=== PATIENT | female | born 1985 | race Caucasian/White ===

== ENCOUNTER 2019-08-27 13:49 | Emergency (ER) | payer SELFPAY ==
--- NOTE | 2019-08-27 14:04 | ER Document Report ---
ED General - General Chief Complaint: Psych Problem Stated Complaint: PSYCH Time Seen by Provider: 08/27/19 14:03 Primary Care Provider: AUBRIE LOPEZ MD [Primary Care Provider] - Follow up as needed Mode of Arrival: Ambulatory Information source: Law Enforcement Notes: 34-year-old female presents emergency department escorted by [employer] for IVC. According the IVC patient was threatening to kill herself. IVC notes that the patient was suicidal. Reports she attempted suicide in the past. The IVC also notes that she has children and in the middle of a divorce. Patient reports she just been crying all day. Denies history of suicide attempt denies suicide ideation at this time. Reports she just did not want to be here anymore. Reports her marriage is fine and so are her kids. Is requesting Tylenol due to headache from crying all day long. TRAVEL OUTSIDE OF THE [place] IN LAST 30 DAYS: No - HPI Onset: This morning Onset/Duration: Sudden Quality of pain: Achy Associated symptoms: None Exacerbated by: Denies Relieved by: Denies Past Medical History - General Information source: Patient, [employer] - ivc Last Menstrual Period: unsure - Social History Smoking Status: Unknown if Ever Smoked Frequency of alcohol use: Occasional Drug Abuse: None Lives with: Family Family History: None Patient has suicidal ideation: Yes Patient has homicidal ideation: No - Past Medical History Cardiac Medical History: Reports: Hx Hypertension Psychiatric Medical History: Reports: Hx Anxiety, Hx Depression Past Surgical History: Reports: Hx Section, Hx Tubal Ligation Review of Systems - Review of Systems Notes: Review HPI for review of systems., All other systems negative Physical Exam - Vital signs Vitals: Temp Pulse Resp BP Pulse Ox 98.0 F 83 18 134/95 H 97 08/27/19 14:17 08/27/19 14:17 08/27/19 14:17 08/27/19 14:17 08/27/19 14:17 - General General appearance: Alert, Anxious In distress: None - HEENT Head: Normocephalic Eyes: Normal Conjunctiva: Normal Extraocular movements intact: Yes Neck: Normal, Supple. No: Lymphadenopathy - Respiratory Respiratory status: No respiratory distress Chest status: Nontender Breath sounds: Normal Chest palpation: Normal - Cardiovascular Rhythm: Regular - Abdominal Inspection: Normal Distension: No distension Bowel sounds: Normal Tenderness: Nontender - Back Back: Normal - Extremities General upper extremity: Normal color, Normal ROM General lower extremity: Normal color, Normal ROM - Neurological Neuro grossly intact: Yes Cognition: Normal Orientation: AAOx4 [place] Coma Scale Eye Opening: Spontaneous [place] Coma Scale Verbal: Oriented [place] Coma Scale Motor: Obeys Commands [place] Coma Scale Total: 15 Speech: Normal - Psychological Associated symptoms: Normal affect, Normal mood - Skin Skin Temperature: Warm Skin Moisture: Dry Skin Color: Normal Course - Re-evaluation Re-evalutation: 08/27/19 18:16 Patient resting quietly ate dinner without problems. No further crying. 08/27/19 20:09 Patient resting quietly. Report given to MODE Webb - Vital Signs Vital signs: Temp Pulse Resp BP Pulse Ox 98.0 F 83 18 134/95 H 97 08/27/19 14:17 08/27/19 14:17 08/27/19 14:17 08/27/19 14:17 08/27/19 14:17 - Laboratory Result Diagrams: 08/27/19 14:15 08/27/19 14:15 Laboratory results interpreted by me: 08/27/19 08/27/19 14:15 16:20 Urine Ketones TRACE H Ur Leukocyte Esterase MODERATE H Salicylates < 1.0 L Acetaminophen < 10 L - EKG Interpretation by Pa EKG shows normal: Sinus rhythm Rate: Normal Rhythm: NSR Additional EKG results interpreted by me: 08/27/19 15:[address] elevation no T wave inversion Discharge - Discharge Clinical Impression: Suicidal ideations Condition: Stable Disposition: PSYCH HOSP/UNIT Referrals: AUBRIE LOPEZ MD [Primary Care Provider] - Follow up as needed
[2019-08-27 14:34] LABS: ABSOLUTE BASOPHILS # (AUTO) 0.1 10^3/uL (0.0-0.2); ABSOLUTE EOSINOPHILS # (AUTO) 0.2 10^3/uL (0.0-0.6); ABSOLUTE LYMPHOCYTES (AUTO) 1.6 10^3/uL (0.5-4.7); ABSOLUTE MONOCYTES (AUTO) 0.4 10^3/uL (0.1-1.4); BASOPHILS % (AUTO) 0.7 % (0-2); EOSINOPHILS % (AUTO) 1.9 % (0-6); HEMATOCRIT 41.1 % (36.0-47.0); HEMOGLOBIN 14.4 g/dL (12.0-15.5); LYMPHOCYTES % (AUTO) 15.5 % (13-45); MEAN CORPUSCULAR HEMOGLOBIN 30.7 pg (27.0-33.4); MEAN CORPUSCULAR HGB CONC 34.9 g/dL (32.0-36.0); MEAN CORPUSCULAR VOLUME 88 fl (80-97); MONOCYTES % (AUTO) 4.1 % (3-13); PLATELET COUNT 214 10^3/uL (150-450); RED BLOOD COUNT 4.68 10^6/uL (3.72-5.28); RED CELL DISTRIBUTION WIDTH 13.2 % (11.5-14.0); SEGMENTED NEUTROPHILS % (AUTO) 77.8 % (42-78); TOTAL CELLS COUNTED % (AUTO) 100 %; WHITE BLOOD COUNT 10.2 10^3/uL (4.0-10.5)
[2019-08-27 14:54] LABS: ALBUMIN 4.6 g/dL (3.5-5.0); ALKALINE PHOSPHATASE 56 U/L (38-126); ANION GAP 10 (5-19); ASPARTATE AMINO TRANSFERASE 18 U/L (14-36); BILIRUBIN,TOTAL 0.7 mg/dL (0.2-1.3); BLOOD UREA NITROGEN 12 mg/dL (7-20); CALCIUM 9.6 mg/dL (8.4-10.2); CARBON DIOXIDE 28 mmol/L (22-30); CHLORIDE 103 mmol/L (98-107); GLUCOSE 97 mg/dL (75-110); POTASSIUM 3.6 mmol/L (3.6-5.0); TOTAL PROTEIN 7.6 g/dL (6.3-8.2)
[2019-08-27 14:57] LABS: ACETAMINOPHEN < 10 ug/mL (10-30); ALCOHOL < 10 mg/dL (NONE DETECTED); SALICYLATE < 1.0 mg/dL (2.0-20.0)
[2019-08-27 16:57] LABS: APPEARANCE,URINE SLIGHTLY-CLOUDY; BILIRUBIN,URINE NEGATIVE (NEGATIVE); COLOR,URINE YELLOW; GLUCOSE, URINE NEGATIVE (NEGATIVE); KETONES,URINE TRACE mg/dL (NEGATIVE); LEUKOCYTE ESTERASE,URINE MODERATE (NEGATIVE); NITRITE,URINE NEGATIVE (NEGATIVE); PROTEIN,URINE NEGATIVE (NEGATIVE); URINE SPECIFIC GRAVITY 1.015; UROBILINOGEN,URINE NEGATIVE mg/dL (<2.0)
[2019-08-27 17:12] LABS: URINE AMPHETAMINES SCREEN NEGATIVE; URINE BARBITURATES SCREEN NEGATIVE; URINE COCAINE SCREEN NEGATIVE; URINE MARIJUANA (THC) SCREEN NEGATIVE; URINE METHADONE SCREEN NEGATIVE; URINE PHENCYCLIDINE SCREEN NEGATIVE
[2019-08-27 17:28] LABS: URINE BENZODIAZEPINES SCREEN UNCONFIRMED POSITIVE
[2019-08-27] MEDS: BUSPIRONE HCL 10 MG TABLET PO SCH (17:54)
--- NOTE | 2019-08-27 19:11 | EKG REPORT ---
SEVERITY:- NORMAL ECG - SINUS RHYTHM : Confirmed by: Cindy Morel MD 27-Aug-2019 19:10:55
[2019-08-27] MEDS ORDERED: OLANZAPINE 5 MG TABLET PO SCH (22:00)
[2019-08-28] MEDS ORDERED: OLANZAPINE 2.5 MG TABLET PO SCH (08:00)
[2019-08-28] MEDS ORDERED: ESCITALOPRAM OXALATE 10 MG TABLET PO SCH (10:00)
[2019-08-28] MEDS: BUSPIRONE HCL 10 MG TABLET PO SCH (10:25)
[2019-08-28] MEDS ORDERED: HYDROCHLOROTHIAZIDE 12.5 MG TABLET PO ONE (14:38)
[2019-08-28] MEDS ORDERED: FLUCONAZOLE 100 MG TABLET PO ONE (14:38)
--- NOTE | 2019-08-28 14:42 | ER Document Report ---
Doctor's Note Notes: 08/28/19 14:39 PHYSICAL EXAMINATION: GENERAL: Well-appearing and in no acute distress. HEAD: Atraumatic, normocephalic. EYES: sclera anicteric, conjunctiva are normal. ENT: nares patent. Moist mucous membranes. NECK: Normal range of motion, supple without lymphadenopathy LUNGS: CTAB and equal. No wheezes rales or rhonchi. HEART: Regular rate and rhythm without murmurs ABDOMEN: Soft, nontender, normal bowel sounds, no guarding. EXTREMITIES: Normal range of motion, no pitting edema. No cyanosis. BACK: No midline tenderness, no step-off or deformity. No CVA tenderness NEUROLOGICAL: Cranial nerves grossly intact. Normal speech. Normal gait. PSYCH: Normal mood, normal affect. SKIN: Warm, Dry, normal turgor, no rashes or lesions noted Patient denies any urinary tract infection symptoms such as frequency dysuria or hematuria. Patient advised of incidental yeast noted on urinalysis. Will give a single dose of Diflucan here. Patient appears medically stable for discharge or transfer at this time. Mental health team does not feel that patient needs IVC criteria at this time and is stable for discharge. Mental health team is requesting that patient have a prescription for Lexapro for 4 days and a prescription for Zyprexa. Patient also takes carvedilol and HCTZ daily although has not had her doses today. Meds will be given prior to discharge.
[2019-08-28 15:15] VITALS: BP 137/81
== END 2019-08-28 14:45 ==
LOC: EEVIPCON 13:49 → ER 13:49
DX: R45.851 Suicidal ideations (principal); B37.41 Candidal cystitis and urethritis; Z79.899 Other long term (current) drug therapy; I10 Essential (primary) hypertension
CPT/HCPCS: 93005; 36415; 87086; 80307 ×4; 84703; 85025; 80053; 81001; 93010; J3490; 99285

== ENCOUNTER → 2020-02-01 | Outpatient (CLI) | payer BC, OTHER ==
[2020-02-01 11:16] LABS: FREE T4 (FREE THYROXINE) 1.16 ng/dL (0.78-2.19)
[2020-02-01 11:30] LABS: THYROID STIMULATING HORMONE 1.23 uIU/mL (0.47-4.68)
== END ==
LOC: OD 10:10
PROVIDERS: ATTEND Psychiatry & Neurology Psychiatry
DX: F43.12 Post-traumatic stress disorder, chronic (principal)
CPT/HCPCS: 36415; 84439; 84443